=== PATIENT | male | born 1985 | race Caucasian/White ===

== ENCOUNTER 2023-09-17 11:15 | Inpatient (IN) ==
[2023-09-17] MEDS: ACETAMINOPHEN 325 MG TAB PO STA ×2 (11:40→18:16)
--- NOTE | 2023-09-17 12:03 | Emergency Department Note ---
History of Present Illness General Chief complaint: Illness Stated complaint: COUGH, SOB, FAST HR, FEVER Time Seen by Provider: 09/17/23 12:03 History of Present Illness Maximum Pain Intensity: 4 NAME: MATT ZARATE AGE: 37 SEX: M : 1985 ARRIVES VIA: Walk-In INFORMANT: Patient ED PROVIDER(S): QUYNH Erickson, Cirilo Banks MD The patient is a pleasant 37-year-old male who arrives to the emergency department for evaluation of fever, cough, body aches over the last week. He reports on Wednesday he left work with a high fever, went home and took Tylenol and went to bed. He reports he woke up the next day with cough, then that afternoon the fever became worse. He states today he was unable to get up out of bed due to weakness. He reports coughing up yellow/green secretions, he denies sore throat, abdominal pain, nausea or vomiting. He denies chest pain, and reports shortness of breath. Home Medications Medication Instructions Recorded Confirmed Type No Known Home Medications 09/17/23 09/17/23 History Allergies Allergy/AdvReac Type Severity Reaction Status Date / Time Pertussis Vaccines Allergy Intermediate Rash Verified 09/17/23 15:09 Past Med/Surg History Problem List (Updated 09/17/23 @ 16:39 by QUYNH Hawkins) RLL pneumonia (Acute) Sepsis Social History Smoking Status: Current every day smoker Tobacco Type: Cigarettes Feels Safe at Home: Yes Physical Exam Vital Signs Vital Signs - 24 hr 09/17/23 11:16 09/17/23 13:23 09/17/23 13:30 Temperature 37.7 C H Temperature Source Oral Pulse Rate 108 H 93 H Pulse Rate [Apical] Pulse Rate [Exercises] Pulse Rate [Left Finger] 90 Pulse Rate [Recovery] Pulse Rate [Resting] Pulse Rate from SpO2 Sensor Pulse Rhythm [Apical] Respiratory Rate 18 33 H Respiratory Rate [Exercises] Respiratory Rate [Recovery] Respiratory Rate [Resting] Respiratory Effort / Characteristics Non-Labored Spontaneous Respiratory Depth Normal Respiratory Pattern Regular Blood Pressure 154/88 H Blood Pressure [Left Arm] 132/80 Blood Pressure Mean 110 Blood Pressure Mean [Left Arm] 97 Blood Pressure Position [Left Arm] Lying Pulse Oximetry 92 92 Pulse Oximetry [Exercises] Pulse Oximetry [Recovery] Pulse Oximetry [Resting] Oxygen Delivery Method Room Air Room Air Sepsis Recent Fever Within 48 Hours Yes Sepsis New/Unexplained Change in Mental Status N/A Sepsis Action Taken by Nursing No Action Required 09/17/23 13:33 09/17/23 13:39 09/17/23 13:43 Temperature Temperature Source Pulse Rate 96 H 97 H Pulse Rate [Apical] Pulse Rate [Exercises] Pulse Rate [Left Finger] Pulse Rate [Recovery] Pulse Rate [Resting] Pulse Rate from SpO2 Sensor 99 H 100 H Pulse Rhythm [Apical] Respiratory Rate 28 H 33 H Respiratory Rate [Exercises] Respiratory Rate [Recovery] Respiratory Rate [Resting] Respiratory Effort / Characteristics Respiratory Depth Respiratory Pattern Blood Pressure 123/70 Blood Pressure [Left Arm] Blood Pressure Mean 79 Blood Pressure Mean [Left Arm] Blood Pressure Position [Left Arm] Pulse Oximetry 92 94 Pulse Oximetry [Exercises] Pulse Oximetry [Recovery] Pulse Oximetry [Resting] Oxygen Delivery Method Sepsis Recent Fever Within 48 Hours Sepsis New/Unexplained Change in Mental Status Sepsis Action Taken by Nursing 09/17/23 13:57 09/17/23 13:57 09/17/23 14:03 Temperature 37.2 C Temperature Source Oral Pulse Rate 86 Pulse Rate [Apical] 84 Pulse Rate [Exercises] 110 H Pulse Rate [Left Finger] Pulse Rate [Recovery] 112 H Pulse Rate [Resting] 84 Pulse Rate from SpO2 Sensor 87 Pulse Rhythm [Apical] Regular Respiratory Rate 28 H 35 H Respiratory Rate [Exercises] 30 H Respiratory Rate [Recovery] 34 H Respiratory Rate [Resting] 28 H Respiratory Effort / Characteristics Non-Labored Spontaneous Respiratory Depth Normal Respiratory Pattern Regular Blood Pressure Blood Pressure [Left Arm] 123/70 Blood Pressure Mean Blood Pressure Mean [Left Arm] 87 Blood Pressure Position [Left Arm] Pulse Oximetry 92 91 Pulse Oximetry [Exercises] 91 Pulse Oximetry [Recovery] 89 L Pulse Oximetry [Resting] 92 Oxygen Delivery Method Room Air Room Air Sepsis Recent Fever Within 48 Hours Sepsis New/Unexplained Change in Mental Status Sepsis Action Taken by Nursing 09/17/23 14:36 09/17/23 15:18 09/17/23 15:30 Temperature Temperature Source Pulse Rate 86 88 Pulse Rate [Apical] Pulse Rate [Exercises] Pulse Rate [Left Finger] Pulse Rate [Recovery] Pulse Rate [Resting] Pulse Rate from SpO2 Sensor 87 88 Pulse Rhythm [Apical] Respiratory Rate 35 H 36 H Respiratory Rate [Exercises] Respiratory Rate [Recovery] Respiratory Rate [Resting] Respiratory Effort / Characteristics Respiratory Depth Respiratory Pattern Blood Pressure 126/80 Blood Pressure [Left Arm] Blood Pressure Mean 96 Blood Pressure Mean [Left Arm] Blood Pressure Position [Left Arm] Pulse Oximetry 92 92 Pulse Oximetry [Exercises] Pulse Oximetry [Recovery] Pulse Oximetry [Resting] Oxygen Delivery Method Sepsis Recent Fever Within 48 Hours Sepsis New/Unexplained Change in Mental Status Sepsis Action Taken by Nursing 09/17/23 15:30 Temperature Temperature Source Pulse Rate 90 Pulse Rate [Apical] Pulse Rate [Exercises] Pulse Rate [Left Finger] Pulse Rate [Recovery] Pulse Rate [Resting] Pulse Rate from SpO2 Sensor 89 Pulse Rhythm [Apical] Respiratory Rate 34 H Respiratory Rate [Exercises] Respiratory Rate [Recovery] Respiratory Rate [Resting] Respiratory Effort / Characteristics Respiratory Depth Respiratory Pattern Blood Pressure Blood Pressure [Left Arm] Blood Pressure Mean Blood Pressure Mean [Left Arm] Blood Pressure Position [Left Arm] Pulse Oximetry 92 Pulse Oximetry [Exercises] Pulse Oximetry [Recovery] Pulse Oximetry [Resting] Oxygen Delivery Method Room Air Sepsis Recent Fever Within 48 Hours Sepsis New/Unexplained Change in Mental Status Sepsis Action Taken by Nursing VITALS: Vitals are noted on the nurse's note and reviewed by myself. Febrile, tachycardia, tachypnea, O2 sat 98 to 92% on room air. GENERAL: 37-year-old male, in no acute distress, nondiaphoretic, well-developed well-nourished. SKIN: The skin was without rashes, erythema, edema, or bruising. HEAD: Normocephalic atraumatic. HEART: Regular rate and rhythm without murmurs gallops or rubs. LUNGS: Diminished lung sounds throughout. ABDOMEN: Positive bowel sounds x 4. Soft, nontender, without masses or organomegaly. Fortune sign negative. No guarding or rebound tenderness. MUSCULOSKELETAL: No muscle atrophy, erythema, or edema noted. Normal gait. Strength 5/5 throughout. NEURO: Patient was alert and oriented to person place and time. No focal neurological deficits. Course Administered Medications Ceftriaxone Sodium (Rocephin) 2,000 mg in 50 mls @ 100 mls/hr IV Q24H ABRAHAM Stop: 09/19/23 14:14 Last Infusion: 09/17/23 15:46 Dose: Infused Documented By: Admin: 09/17/23 14:48 Dose: 100 mls/hr Documented By: AVE Discontinued Medications Acetaminophen (Acetaminophen 325 Mg Tab) 325 mg PO NOW STA Stop: 09/17/23 11:27 Last Admin: 09/17/23 11:40 Dose: 325 mg Documented By: MANSI Albuterol (Albuterol 0.5% Neb Soln 2.5 Mg/0.5 Ml Vial) 2.5 mg NEB NOW STA; Protocol Stop: 09/17/23 14:38 Last Admin: 09/17/23 15:46 Dose: 2.5 mg Documented By: ANDREW Sodium Chloride (Nss) 1,000 mls @ 999 mls/hr IV .Q1H1M ONE Stop: 09/17/23 13:32 Last Infusion: 09/17/23 15:46 Dose: Infused Documented By: Admin: 09/17/23 13:29 Dose: 999 mls/hr Documented By: AVE Azithromycin 500 mg/ Dextrose 255 mls @ 127.5 mls/hr IV NOW STA Stop: 09/17/23 16:11 Last Admin: 09/17/23 15:46 Dose: 127.5 mls/hr Documented By: ANDREW Ibuprofen (Ibuprofen 600 Mg Tab) 600 mg PO NOW STA Stop: 09/17/23 13:43 Last Admin: 09/17/23 13:56 Dose: 600 mg Documented By: AVE Medical Decision Making Differential Diagnosis Viral syndrome, strep pharyngitis, tonsillitis, mononucleosis, retropharyngeal abscess, peritonsillar abscess, otitis media, sinusitis, bronchitis, pneumonia, as well as other pathologies. Medical Records Attestation: I reviewed the patient's medical records. Home Medications Current Medication List: was personally reviewed by me Laboratory Data Attestation: I reviewed the patient's lab results. Leukocytosis 16.04 stable hemoglobin and hematocrit no electrolyte abnormalities, group A strep negative lactate 1.0 09/17/23 11:43 09/17/23 11:43 Lab Results 09/17/23 09/17/23 09/17/23 Range/Units 11:43 11:53 13:14 WBC 16.04 H (4.8-10.8) K/ul RBC 5.60 (4.70-6.10) M/uL Hgb 16.0 (14.0-18.0) g/dl Hct 47.0 (42.0-52.0) % MCV 83.9 (80.0-100.0) fL MCH 28.6 (25.0-34.0) pg MCHC 34.0 (32.0-36.0) g/dL RDW Std Deviation 36.4 (36.4-46.3) fL RDW Coeff of Kike 12.0 (11.5-14.5) % Plt Count 258 (130-400) K/uL MPV 9.4 (9.4-12.4) fL Immature Gran % (Auto) 0.5 % Neut % (Auto) 77.8 % Lymph % (Auto) 13.4 % [place] % (Auto) 7.0 % Eos % (Auto) 1.0 % Baso % (Auto) 0.3 % Neut # (Auto) 12.47 H (1.40-6.50) K/uL Lymph # (Auto) 2.15 (1.20-3.40) K/uL [place] # (Auto) 1.13 H (0.11-0.59) K/uL Eos # (Auto) 0.16 (0.00-0.50) K/uL Baso # (Auto) 0.05 (0.00-0.20) K/uL Immature Gran # (Auto) 0.08 (0.01-0.20) K/uL Sodium 138 (136-145) mmol/L Potassium 4.2 (3.5-5.1) mmol/L Chloride 103 (98-107) mmol/L Carbon Dioxide 26 (21-32) mmol/L Anion Gap 9 (3-11) BUN 11 (6-23) mg/dl Creatinine 0.98 (0.6-1.4) mg/dl Est Cr Clr Drug Dosing 133.0 ml/min Est GFR ( Amer) 114.5 ml/min Est GFR (Non-Af Amer) 98.8 ml/min BUN/Creatinine Ratio 11.2 (10-20) Glucose 96 (70-99(Fasting)) mg/dl Lactate 1.0 (0.4-2.0) mmol/L Calcium 9.6 (8.6-10.3) mg/dl Total Bilirubin 0.7 (0.2-1.0) mg/dl AST 25 (13-39) U/L ALT 29 (7-52) U/L Alkaline Phosphatase 112 H (34-104) U/L Total Protein 7.8 (6.0-8.3) gm/dl Albumin 4.4 (3.4-5.0) gm/dl Globulin 3.4 (2.5-4.0) gm/dl Albumin/Globulin Ratio 1.3 (0.9-2) Acetaminophen < 3 L (10-30) ug/ml Monoscreen Negative (Negative) Group A Strep (PCR) NOT DETECTED (NotDetected) Imaging Data Attestation: I personally reviewed and interpreted this imaging study as follows: My Impression: Initial x-ray interpretation per myself shows patchy airspace opacities with right lower lung consolidation. Will await formal radiology report. Radiologist's Impression: Chest X-Ray 09/17/23 11:24 XR chest 1V not portable CLINICAL HISTORY: difficulty breathing TECHNIQUE: Single frontal radiograph of the chest was obtained. Comparison: None available at the time of this dictation. FINDINGS: No lines and tubes are seen. The cardiomediastinal silhouette is normal. Right lower lung airspace opacity is seen. No evidence of pleural effusion or pneumothorax. IMPRESSION: Right lower lung airspace opacity likely represent atelectasis with or without superimposed aspiration/pneumonia. ACT 112: Negative or not required by law. Electronically signed by: Donte Siddiqui M.D. 09/17/2023 12:59 PM MDM Narrative The patient is a pleasant 37-year-old male who arrives to the emergency department for the above-stated complaint. Initial workup was performed in triage including a saline lock, CBC, CMP, monotest, blood cultures and lactate. Upon examination the patient reports body aches, fever, chills with significant cough. CBC shows a leukocytosis of 16.04, lactate 1.0, CMP unremarkable, monotest negative. Chest x-ray per my initial interpretation shows patchy opacities of the right lower lobe consolidation. Group A strep was added after the patient informed me his family was recently positive for strep, his test was negative. The patient performed an ambulatory pulse ox trial with a result of 89% upon ambulation. I spoke with the patient regarding the workup, he was agreeable for hospital admission. Case management was notified, and facilitated contact with the [facility] hospitalist group. Dr. Estrada from the [facility] hospitalist group agreed to accept the patient. He was started on IV azithromycin, as well as Rocephin. Please refer to Dr. Estrada's documentation for further patient care. Continuous groundwater monitoring technician: Order was placed for continuous groundwater monitoring technician. Patient was placed on the groundwater monitoring technician. Patient was noted to be in sinus tachycardia at an initial rate of 96 bpm. Impression & Plan RLL pneumonia Discharge Plan Visit Data Chief Complaint: Illness Stated Complaint: COUGH, SOB, FAST HR, FEVER ED Provider: Cirilo Banks ED Midlevel Provider: Nadege Sweeney Discharge Problem: RLL pneumonia Forms Stand Alone Forms: [employer] Prescriptions Prescriptions: No Action No Known Home Medications Referrals Referrals: PCP,NO [Primary Care Provider] - Discharge Problem: RLL pneumonia Qualifiers: Pneumonia type: due to unspecified organism Qualified Code(s): J18.9 - Pneumonia, unspecified organism
[2023-09-17 12:12] LABS: Basophils # (auto) 0.05 K/uL (0.00-0.20); Basophils % (auto) 0.3 %; Eosinophils # (auto) 0.16 K/uL (0.00-0.50); Immature Granulocytes # (auto) 0.08 K/uL (0.01-0.20); Immature Granulocytes % (auto) 0.5 %; Lymphocytes # (auto) 2.15 K/uL (1.20-3.40); Lymphocytes % (auto) 13.4 %; Mean Corpuscular Hemoglobin 28.6 pg (25.0-34.0); Mean Corpuscular Volume 83.9 fL (80.0-100.0); Mean Platelet Volume 9.4 fL (9.4-12.4); Monocytes # (auto) 1.13 K/uL (0.11-0.59); Neutrophils # (auto) 12.47 K/uL (1.40-6.50); Neutrophils % (auto) 77.8 %; Platelet Count 258 K/uL (130-400); RDW Standard Deviation 36.4 fL (36.4-46.3); White Blood Count 16.04 K/ul (4.8-10.8)
[2023-09-17 12:31] LABS: Albumin Globulin Ratio 1.3 (0.9-2); Albumin Level 4.4 gm/dl (3.4-5.0); BUN Creatinine Ratio 11.2 (10-20); Bilirubin,Total 0.7 mg/dl (0.2-1.0); Calcium 9.6 mg/dl (8.6-10.3); Est GFR (African American) 114.5 ml/min; Est GFR (Non-African American) 98.8 ml/min; Globulin 3.4 gm/dl (2.5-4.0); Potassium 4.2 mmol/L (3.5-5.1); Total Protein 7.8 gm/dl (6.0-8.3)
--- NOTE | 2023-09-17 13:00 | XRay Report ---
XR chest 1V not portable CLINICAL HISTORY: difficulty breathing TECHNIQUE: Single frontal radiograph of the chest was obtained. Comparison: None available at the time of this dictation. FINDINGS: No lines and tubes are seen. The cardiomediastinal silhouette is normal. Right lower lung airspace op acity is seen. No evidence of pleural effusion or pneumothorax. IMPRESSION: Right lower lung airspace opacity likely represent atelectasis with or without superimposed aspiratio n/pneumonia. ACT 112: Negative or not required by law. Electronically signed by: Donte Siddiqui M.D. 09/17/2023 12:59 PM
[2023-09-17] MEDS: SODIUM CHLORIDE 0.9% 1,000 ML IV ONE (13:29)
[2023-09-17] MEDS: IBUPROFEN 600 MG TAB PO STA (13:56)
[2023-09-17] MEDS: cefTRIAXone SODIUM 2,000 MG/50 ML BAG IV SCH (14:48)
--- NOTE | 2023-09-17 15:09 | History & Physical Report ---
Date of Service September 17, 2023 Assessment & Plan (1) Sepsis: (2) RLL pneumonia: Plan: Ran Myrick is a 37y/o M with no significant PMHx who presented to the ED for evaluation of cough w/ associated SOB and was found to have RLL pneumonia. Initial BP on arrival to ED 154/88, now 123/70 on admission. HR was elevated at 112bpm around 1:57 PM, currently HR 84bpm. RR remaining elevated around the 30s, most recent RR 34. Temp on arrival to ED was slightly elevated at 37.7 C. Temp NOT currently elevated at 37.2 C. Currently 92% O2 Sat on RA. Labs reveal WBC 16.04, no acute electrolyte abnormalities. Alk Phos slightly elevated at 112, otherwise LFTs w/in normal range. Group A strep and monoscreen both negative. Lactate 1.0 on admission. Creatinine 0.98 and GFR 98.8, no evidence of acute renal impairment. Chest x-ray revealed right lower lung airspace opacity likely representing atelectasis with or without superimposed aspiration/pneumonia. Will treat as likely pneumonia. [place] [facility] [place]epsis/Septic Shock Criteria, patient does meet SEPSIS CRITERIA: current RR 34, WBC 16.04 and there is a suspected/present source of infection. Patient administered the following in the ED: 1L NSS, 600mg PO ibuprofen, 2g IV ceftriaxone, 500mg IV azithromycin, 325mg PO Tylenol and an albuterol nebulizer. As mentioned in my physical examination, he was appearing very sweaty/slightly uncomfortable. No fever, but did order him another dose of PO Tylenol to be given in the ED. Ordered routine EKG to establish baseline findings, however NOT currently reporting any chest pain. -Continue aggressive IVF hydration w/ NSS, broad-spectrum IV ABX coverage [cefepime + azithromycin]. -Pulmonary toilet w/ scheduled nebs, flutter valve and incentive spirometry. -RVP, sputum culture, urine legionella ordered. Continuous cardiac monitoring. -Blood culture pending, follow results to narrow ABX coverage. -Activity Ad Grecia/as Tolerated, fall precautions ordered. -Smoking cessation counseling ordered. -Repeat BMP, CBC no diff in AM. DVT Prophylaxis: Lovenox Code Status: Full Code PCP: NO PCP Dispo: Admit to Med/Surg w/ Telemetry Patient seen in collaboration with Dr. Morgan. Please see addendum. I spent a total of 75 minutes coordinating, documenting, and providing care for this patient excluding time spent in the performance of separately billed services. This included personally reviewing all current laboratories and imaging studies, medical reconciliation, outpatient chart review and discussion with specialists. This chart was completed in part utilizing Speech Voice Recognition Software. Grammatical errors, random word insertions, pronoun errors, and incomplete sentences are an occasional consequence of this system due to software limitations, ambient noise, and hardware issues. Any formal questions or concerns about the content, text, or information contained within the body of this dictation should be directly addressed to the provider for clarification. History of Present Illness Chief Complaint: Cough, SOB x 5 days Primary Care Provider: NO PCP Ran Myrick is a 37y/o M with no significant PMHx who presented to the ED for evaluation of cough w/ associated SOB x 5 days. History obtained from patient, and associated ED records. Patient seen at bedside and is accompanied in the room by his significant other, who provides additional history. Patient reports that he has been experiencing some ongoing SOB and cough since Wednesday. He reports yellow/green sputum production and ongoing chills/body aches. His significant other notes that he has had ongoing, intermittent fevers. They could not remember what his last known temperature was, but it is understood that his temperature did reach ~102F a few days ago. His kids have been battling strep throat over the past week, but he denies any other recent sick contacts. He denies any N/V, abdominal pain or urinary/bowel habit changes. He has become increasingly fatigued, had some difficulty even getting out of bed this morning d/t weakness. He has been appropriately hydrating at home. He reports consuming a lot of cereal at home, which is not his normal diet. He endorses a slight decrease in appetite, but denies any issues with swallowing. He denies any chest pain. He did report becoming a little lightheaded/dizzy upon standing this morning when he got out of bed, but denies any recent falls. He is currently not lightheaded/dizzy. He h as been taking Tylenol and OTC cold medications at home w/ no relief of the cough/SOB. He denies any current sinus congestion, but does endorse feeling congested in his chest. He is having some pleuritic pain d/t coughing so much, and has been dealing with episodes of sweating. He is currently not taking any prescription medications. He denies any sore throat. Initial BP on arrival to ED 154/88, now 123/70 on admission. HR was elevated at 112bpm around 1:57 PM, currently HR 84bpm. RR remaining elevated around the 30s, most recent RR 34. Temp NOT currently elevated at 37.2 C. Currently 92% O2 Sat on RA. Labs reveal WBC 16.04, no acute electrolyte abnormalities. Alk Phos slightly elevated at 112, otherwise LFTs w/in normal range. Group A strep and monoscreen both negative. Lactate 1.0 on admission. Creatinine 0.98 and GFR 98.8, no evidence of acute renal impairment. Chest x-ray revealed right lower lung airspace opacity likely representing atelectasis with or without superimposed aspiration/pneumonia. Will treat as likely pneumonia. Per [facility] SIRS/Sepsis/Septic Shock Criteria, patient does meet SEPSIS CRITERIA: current RR 34, WBC 16.04 and there is a suspected/present source of infection. Patient administered the following in the ED: 1L NSS, 600mg PO ibuprofen, 2g IV ceftriaxone, 500mg IV azithromycin, 325mg PO Tylenol and an albuterol nebulizer. Allergies Allergy/AdvReac Type Severity Reaction Status Date / Time Pertussis Vaccines Allergy Intermediate Rash Verified 09/17/23 17:11 Home Medications Medication Instructions Recorded Confirmed Type No Known Home Medications 09/17/23 09/17/23 History Past Med/Surg History Problem List RLL pneumonia (Acute) Sepsis Medical History No pertinent past medical history Social History Smoking Status: Current every day smoker Tobacco Type: Cigarettes Hx Alcohol Use: No Hx Substance Use: No Preferred Language: Portuguese Communication Ability: Effective Closing Specialist Required: No Beliefs That Will Affect Care: None Current Living Situation: Family and Significant Other Feels Safe at Home: Yes Safety Concerns: Feels Safe At This Time Assistive Devices: None Review of Systems Review of Systems: At least ten systems reviewed and negative, except as noted in the HPI. Physical Exam Physical Exam: General Appearance: No acute distress, but appears slightly uncomfortable and sweaty. Conversing appropriately w/ no issues. Head: Normocephalic, atraumatic. Eyes: Normal inspection, PERRL, conjunctivae normal, anicteric sclerae. ENT: External ear and nose normal, oropharynx normal. Neck: Normal visual inspection, trachea midline, no thyromegaly. Respiratory: Lung sounds diminished throughout, no overt wheezing noted. No accessory muscle use. Cardiovascular: Tachycardic, regular rhythm, no murmur, normal peripheral pulses, no BLE edema. Vessels: No JVD. Chest: Normal inspection of chest. Abdomen/GI: Normal bowel sounds, soft, nontender, no hepatosplenomegaly. Extremities/Musculoskeletal: No cyanosis or clubbing, extremities motor strength 5/5. Neurologic: PERRL, EOMI, accommodation nl, no face palsy, no dysarthria, CN's II-XI grossly intact bilaterally and moves all extremities. Psychiatric: A+Ox3, euthymic affect. Skin: No rashes, normal color, warm/dry. Results & Data Results & Data Vital Signs (Past 12 Hours) Vital Signs Temp Pulse Pulse Pulse Pulse Pulse Pulse 09/17/23 13:57 37.2 C 84 09/17/23 13:57 110 H 112 H 84 09/17/23 13:30 90 09/17/23 13:23 93 H 09/17/23 11:16 37.7 C H 108 H Resp Resp Resp Resp BP BP Pulse Ox 09/17/23 13:57 28 H 123/70 92 09/17/23 13:57 30 H 34 H 28 H 09/17/23 13:30 33 H 132/80 92 09/17/23 13:23 09/17/23 11:16 18 154/88 H 92 Pulse Ox Pulse Ox Pulse Ox O2 Del Method 09/17/23 13:57 Room Air 09/17/23 13:57 91 89 L 92 Room Air 09/17/23 13:30 Room Air 09/17/23 13:23 09/17/23 11:16 Room Air Laboratory Results Short CBC 09/17/23 Range/Units 11:43 WBC 16.04 H (4.8-10.8) K/ul Hgb 16.0 (14.0-18.0) g/dl Hct 47.0 (42.0-52.0) % Plt Count 258 (130-400) K/uL BMP 09/17/23 11:43 Sodium 138 Potassium 4.2 Chloride 103 Carbon Dioxide 26 BUN 11 Creatinine 0.98 Glucose 96 Calcium 9.6 Liver Function 09/17/23 Range/Units 11:43 Total Bilirubin 0.7 (0.2-1.0) mg/dl AST 25 (13-39) U/L ALT 29 (7-52) U/L Alkaline Phosphatase 112 H (34-104) U/L Albumin 4.4 (3.4-5.0) gm/dl Diagnostic Findings Chest X-Ray 09/17/23 11:24 XR chest 1V not portable CLINICAL HISTORY: difficulty breathing TECHNIQUE: Single frontal radiograph of the chest was obtained. Comparison: None available at the time of this dictation. FINDINGS: No lines and tubes are seen. The cardiomediastinal silhouette is normal. Right lower lung airspace opacity is seen. No evidence of pleural effusion or pneumothorax. IMPRESSION: Right lower lung airspace opacity likely represent atelectasis with or without superimposed aspiration/pneumonia. ACT 112: Negative or not required by law. Electronically signed by: Donte Siddiqui M.D. 09/17/2023 12:59 PM Medications Administered Ceftriaxone Sodium (Rocephin) 2,000 mg in 50 mls @ 100 mls/hr IV Q24H ABRAHAM Stop: 09/19/23 14:14 Last Admin: 09/17/23 14:48 Dose: 100 mls/hr Discontinued Medications Acetaminophen (Acetaminophen 325 Mg Tab) 325 mg PO NOW STA Stop: 09/17/23 11:27 Last Admin: 09/17/23 11:40 Dose: 325 mg Documented By: MANSI Sodium Chloride (Nss) 1,000 mls @ 999 mls/hr IV .Q1H1M ONE Stop: 09/17/23 13:32 Last Admin: 09/17/23 13:29 Dose: 999 mls/hr Documented By: AVE Ibuprofen (Ibuprofen 600 Mg Tab) 600 mg PO NOW STA Stop: 09/17/23 13:43 Last Admin: 09/17/23 13:56 Dose: 600 mg Documented By: AVE Code Status & VTE Plan Code Status FULL CODE VTE Prophylaxis Plan VTE Prophylaxis will be ordered: Yes Supervising Physician Co-Signing Physician Notes delayed entry date of service noted above Attending Addendum: care coordinated extensively with AYAH Qi Mark please refer to her notes for full details, I agree with her notes patient seen and examined, records reviewed by myself as well Diagnoses and plan of care formulated with AYAH Qi Mark in detail, please refer to her notes Jacob Morgan MD (1) Sepsis Sepsis acute organ dysfunction status: without acute organ dysfunction Sepsis type: sepsis due to unspecified organism Qualified Code(s): A41.9 - Sepsis, unspecified organism (2) RLL pneumonia Pneumonia type: due to unspecified organism Qualified Code(s): J18.9 - Pneumo cheng, unspecified organism
[2023-09-17] MEDS: ALBUTEROL 0.5% NEB SOLN 2.5 MG/0.5 ML VIAL NEB STA (15:46)
[2023-09-17] MEDS: AZITHROMYCIN 500 MG in DEXTROSE 5% 250 ML IV STA (15:46)
[2023-09-17 16:53] LABS: Adenovirus PCR Not Detected (NotDetected); Bordetella parapertussis PCR Not Detected (NotDetected); Bordetella pertussis PCR Not Detected (NotDetected); Chlamydia pneumoniae PCR Not Detected (NotDetected); Coronavirus 229E PCR Not Detected (NotDetected); Coronavirus CoV-2 (COVID19)PCR Not Detected (NotDetected); Coronavirus HKU1 PCR Not Detected (NotDetected); Coronavirus NL63 PCR Not Detected (NotDetected); Coronavirus OC43PCR Not Detected (NotDetected); Human Metapneumovirus PCR Not Detected (NotDetected); Influenza A PCR Not Detected (NotDetected); Influenza B PCR Not Detected (NotDetected); Mycoplasma pneumoniae PCR DETECTED (NotDetected); Parainfluenza Virus 1 PCR Not Detected (NotDetected); Parainfluenza Virus 2 PCR Not Detected (NotDetected); Parainfluenza Virus 3 PCR Not Detected (NotDetected); Parainfluenza Virus 4 PCR Not Detected (NotDetected); Respiratory Syncytial VirusPCR Not Detected (NotDetected); Rhinovirus/Enterovirus PCR Not Detected (NotDetected)
[2023-09-17] MEDS ORDERED: ALUMINUM/MAGNESIUM SUSP 30 ML UDC PO PRN (18:46)
[2023-09-17] MEDS ORDERED: ONDANSETRON INJ 2 MG/ML 2 ML VIAL IV PRN (18:46)
[2023-09-17] MEDS ORDERED: POLYETHYLENE (MIRALAX) 17 GM PACK PO PRN (18:46)
[2023-09-17] MEDS ORDERED: MAGNESIUM HYDROXIDE SUSP 30 ML UDC PO PRN (18:46)
[2023-09-17] MEDS: ENOXAPARIN INJ 40 MG/0.4 ML SYR SQ SCH (20:05)
[2023-09-17] MEDS: CEFEPIME 2,000 MG in SYRINGE 0 ML IV SCH (20:05)
[2023-09-17] MEDS: ALBUTEROL 0.5% NEB SOLN 2.5 MG/0.5 ML VIAL NEB SCH (20:05)
[2023-09-17] MEDS: SODIUM CHLORIDE 0.9% 1,000 ML IV SCH (20:06)
[2023-09-17] MEDS: ACETAMINOPHEN 325 MG TAB PO PRN (23:21)
--- NOTE | 2023-09-18 00:01 | Communication Note ---
Date of Service: September 18, 2023 Notified by RN of increased SOB and hypoxemia. O2 sats 80s after coming out of bathroom. AP Acute hypoxemic respiratory failure secondary to community-acquired pneumonia Supplemental O2 Baseline ABG Solu-Medrol 1 dose now, nebs stat Continue antibiotic Rx
[2023-09-18] MEDS ORDERED: methylPREDNISolone 125 MG/2 ML VIAL IV STA (00:04)
[2023-09-18] MEDS: LEVALBUTEROL 1.25 MG/3 ML NEB NEB STA (00:10)
[2023-09-18] MEDS: IPRATROPIUM BROMIDE NEB SOLN 0.02% 0.5MG/2.5ML VIAL INH STA (00:10)
[2023-09-18 00:26] LABS: Magnesium 2.1 mg/dl (1.7-2.4)
[2023-09-18] MEDS: AMPICILLIN/SULBACTAM SOD 3,000 MG in SODIUM CHLOR 0.9% MINI-B 100 ML IV SCH (00:26)
[2023-09-18] MEDS: methylPREDNISolone 40 MG in SYRINGE 0 ML IV ONE (00:26)
[2023-09-18 00:45] LABS: Base Excess ABG 0.8 mEq/L (-9-1.8); HCO3 ABG 24 mmol/L (19-24); PCO2 ABG 34 mmHg (35-46); PO2 ABG 69 mmHg (80-95); pH ABG 7.46 (7.35-7.45)
[2023-09-18 00:50] LABS: Allen Test Pos (Pos)
[2023-09-18 06:45] LABS: Hematocrit (blood only) 46.6 % (42.0-52.0); Hemoglobin 15.7 g/dl (14.0-18.0); Mean Corpuscular Hemoglobin 28.5 pg (25.0-34.0); Mean Corpuscular Hgb Conc 33.7 g/dL (32.0-36.0); Mean Corpuscular Volume 84.7 fL (80.0-100.0); Mean Platelet Volume 9.4 fL (9.4-12.4); Platelet Count 279 K/uL (130-400); RDW Coefficient of Variation 12.2 % (11.5-14.5); RDW Standard Deviation 37.4 fL (36.4-46.3); White Blood Count 12.64 K/ul (4.8-10.8)
[2023-09-18 07:56] LABS: BUN Creatinine Ratio 12.8 (10-20); Calcium 9.3 mg/dl (8.6-10.3); Creatinine Clr Calc Pharmacy 151.6 ml/min; Est GFR (African American) 129.3 ml/min; Est GFR (Non-African American) 111.6 ml/min; Potassium 3.9 mmol/L (3.5-5.1)
--- NOTE | 2023-09-18 08:12 | XRay Report ---
XR chest 1V portable HISTORY: Shortness of breath. COMPARISON: Chest 09/17/2023. FINDINGS: Interval progression of the right lower lobe airspace opacity consistent with a pneumonia. No pneumothorax. No pleural effusions. The cardiac silhouette is borderline enlarged. This may be acc entuated by the low lung volumes. There is mild diffuse interstitial prominence. IMPRESSION: Interval progression of the right lower lobe airspace opacity consistent with a pneumonia. 1-2 month chest x-ray follow-up recommended to ensure resolution. ACT 112: Negative or not required by law. Electronically signed by: Janusz Chance M.D. 09/18/2023 8:11 AM
[2023-09-18] MEDS ORDERED: guaiFENesin/DEXTROM SYRUP 200MG/20MG 10ML UDC PO PRN (09:41)
--- NOTE | 2023-09-18 15:48 | Hospitalist Progress Note ---
Date of Service September 18, 2023 Assessment & Plan (1) Sepsis: (2) RLL pneumonia: Plan: Ran Myirck is a 37y/o M with no significant PMHx who presented to the ED for evaluation of cough w/ associated SOB and was found to have RLL pneumonia. Sepsis Right lower lobe pneumonia Acute respiratory failure with hypoxia--POA --CXR:Right lower lung airspace opacity likely represent atelectasis with or without superimposed aspiration/pneumonia. --Nasal MRSA negative -- BioFire positive for mycoplasma pneumonia --Group A strep, mono screen negative --Urine Legionella antigen pending --Blood cultures negative to date --Sputum culture pending --Empirically on azithromycin, cefepime --Aggressive pulmonary hygiene -- Nebs as needed --Wean off of supplemental oxygen as able -- Check procalcitonin --Received IV fluids -Antitussives as needed Obesity BMI 4 Hyperglycemia Check A1c DVT Px: Lovenox SQ Code Status: Full Code Admission and Anticipated Discharge Date Admission Date: September 17, 2023 Subjective Patient is seen and examined at bedside States feeling a lot better today Less dyspnea Still has some cough with expectoration Denies any chest pain, nausea, vomiting abdominal pain No other complaints Saturating well on 2 L supplemental oxygen Review of Systems Review of Systems: All systems reviewed & are unremarkable except as noted in Subjective Physical Exam Physical Exam: Physical Exam: Vitals signs as noted above General Appearance:Obese, no apparent distress Head: normocephalic, Atraumatic Eyes: normal inspection, EOMI Neck: supple, Trachea midline Respiratory/Chest: Decreased breath sounds, scattered wheezes, No accessory muscle use Cardiovascular: S1, S2, No murmur Abdomen/GI:Soft, Non tender, Bowel sounds present Extremities/Musculoskeletal:normal inspection, no edema Neurologic/Psych:AAOX3, grossly no focal neurological deficits Skin: normal color, warm Results & Data Results & Data Vital Signs (Past 12 Hours) Vital Signs Temp Pulse Pulse Resp BP BP Pulse Ox 09/18/23 15:05 79 09/18/23 14:45 83 16 92 09/18/23 11:14 36.3 C L 75 18 139/79 94 09/18/23 10:43 90 18 90 09/18/23 08:00 09/18/23 07:44 36.6 C 79 18 123/65 94 09/18/23 07:32 74 06/01/24 07:00 80 18 92 09/18/23 05:16 36.7 C 80 24 129/78 93 O2 Del Method O2 Flow Rate 09/18/23 15:05 09/18/23 14:45 Nasal Cannula 2 09/18/23 11:14 Nasal Cannula 2 09/18/23 10:43 Nasal Cannula 2 09/18/23 08:00 Nasal Cannula 2 09/18/23 07:44 Nasal Cannula 2 09/18/23 07:32 09/18/23 07:00 Nasal Cannula 2 09/18/23 05:16 Nasal Cannula 2 Laboratory Results Short CBC 09/18/23 Range/Units 06:10 WBC 12.64 H (4.8-10.8) K/ul Hgb 15.7 (14.0-18.0) g/dl Hct 46.6 (42.0-52.0) % Plt Count 279 (130-400) K/uL BMP 09/18/23 06:10 Sodium 139 Potassium 3.9 Chloride 106 Carbon Dioxide 22 BUN 11 Creatinine 0.86 Glucose 157 H Calcium 9.3 (1) Sepsis Sepsis type: sepsis due to unspecified organism Sepsis acute organ dysfunction status: without acute organ dysfunction Qualified Code(s): A41.9 - Sepsis, unspecified organism (2) RLL pneumonia Pneumonia type: due to unspecified organism Qualified Code(s): J18.9 - Pneumonia, unspecified organism
[2023-09-18] MEDS: AZITHROMYCIN 250 MG in DEXTROSE 5% 250 ML IV SCH (17:46)
[2023-09-19 06:39] LABS: Hematocrit (blood only) 41.3 % (42.0-52.0); Hemoglobin 14.1 g/dl (14.0-18.0); Mean Corpuscular Hemoglobin 28.7 pg (25.0-34.0); Mean Corpuscular Hgb Conc 34.1 g/dL (32.0-36.0); Mean Corpuscular Volume 84.1 fL (80.0-100.0); Mean Platelet Volume 9.4 fL (9.4-12.4); Platelet Count 292 K/uL (130-400); RDW Coefficient of Variation 12.3 % (11.5-14.5); RDW Standard Deviation 37.6 fL (36.4-46.3); Red Blood Count 4.91 M/uL (4.70-6.10); White Blood Count 13.46 K/ul (4.8-10.8)
[2023-09-19 07:13] LABS: Estimated Average Glucose 123 mg/dl; Hemoglobin A1C 5.9 % (4.5-5.6)
[2023-09-19 07:34] LABS: BUN Creatinine Ratio 16.5 (10-20); Calcium 8.8 mg/dl (8.6-10.3); Creatinine Clr Calc Pharmacy 143.3 ml/min; Est GFR (African American) 125.2 ml/min; Potassium 3.6 mmol/L (3.5-5.1)
[2023-09-19] MEDS: guaiFENesin 600 MG TABCR PO SCH (13:34)
--- NOTE | 2023-09-19 15:53 | Hospitalist Progress Note ---
Date of Service September 19, 2023 Assessment & Plan (1) Sepsis: (2) RLL pneumonia: Plan: Ran Myrick is a 37y/o M with no significant PMHx who presented to the ED for evaluation of cough w/ associated SOB and was found to have RLL pneumonia. Sepsis Right lower lobe pneumonia Acute respiratory failure with hypoxia--POA --CXR:Right lower lung airspace opacity likely represent atelectasis with or without superimposed aspiration/pneumonia. --Nasal MRSA negative -- BioFire positive for mycoplasma pneumonia --Group A strep, mono screen negative --Urine Legionella antigen pending --Blood cultures negative to date --Sputum culture moderate normal ct --Empirically on azithromycin, cefepime --Aggressive pulmonary hygiene -- Nebs as needed --Weaned off of supplemental oxygen --Received IV fluids -Antitussives as needed -Clinically improving Added Mucinex Nocturnal hypoxia Suspected ZELDA Will obtain nocturnal oximetry study Advised to get sleep study as outpatient Obesity BMI 4 Prediabetes A1c 5.9 DVT Px: Lovenox SQ Code Status: Full Code Admission and Anticipated Discharge Date Admission Date: September 17, 2023 Subjective Patient is seen and examined at bedside States having low oxygen saturations overnight Less cough, dyspnea today Patient states concern for possible ZELDA Denies any chest pain, nausea, vomiting abdominal pain Review of Systems Review of Systems: All systems reviewed & are unremarkable except as noted in Subjective Physical Exam Physical Exam: Physical Exam: Vitals signs as noted above General Appearance:Obese, no apparent distress Head: normocephalic, Atraumatic Eyes: normal inspection, EOMI Neck: supple, Trachea midline Respiratory/Chest: Decreased breath sounds, No accessory muscle use Cardiovascular: S1, S2, No murmur Abdomen/GI:Soft, Non tender, Bowel sounds present Extremities/Musculoskeletal:normal inspection, no edema Neurologic/Psych:AAOX3, grossly no focal neurological deficits Skin: normal color, warm Results & Data Results & Data Vital Signs (Past 12 Hours) Vital Signs Temp Pulse Pulse Resp BP Pulse Ox O2 Del Method 09/19/23 15:48 36.7 C 100 H 18 125/77 93 Room Air 09/19/23 15:04 92 H 09/19/23 14:42 87 18 94 Room Air 09/19/23 10:46 93 H 18 93 Room Air 09/19/23 08:00 Nasal Cannula 09/19/23 07:46 36.4 C L 73 18 124/72 92 Room Air 09/19/23 07:11 83 09/19/23 07:09 65 18 94 Nasal Cannula O2 Flow Rate 09/19/23 15:48 09/19/23 15:04 09/19/23 14:42 09/19/23 10:46 09/19/23 08:00 1 09/19/23 07:46 09/19/23 07:11 09/19/23 07:09 1 Laboratory Results Short CBC 09/19/23 Range/Units 06:13 WBC 13.46 H (4.8-10.8) K/ul Hgb 14.1 (14.0-18.0) g/dl Hct 41.3 L (42.0-52.0) % Plt Count 292 (130-400) K/uL BMP 09/19/23 06:13 Sodium 140 Potassium 3.6 Chloride 106 Carbon Dioxide 27 BUN 15 Creatinine 0.91 Glucose 124 H Calcium 8.8 (1) Sepsis Sepsis type: sepsis due to unspecified organism Sepsis acute organ dysfunction status: without acute organ dysfunction Qualified Code(s): A41.9 - Sepsis, unspecified organism (2) RLL pneumonia Pneumonia type: due to unspecified organism Qualified Code(s): J18.9 - Pneumonia, unspecified organism
[2023-09-20 07:01] LABS: Hematocrit (blood only) 44.3 % (42.0-52.0); Hemoglobin 14.7 g/dl (14.0-18.0); Mean Corpuscular Hemoglobin 28.4 pg (25.0-34.0); Mean Corpuscular Hgb Conc 33.2 g/dL (32.0-36.0); Mean Corpuscular Volume 85.5 fL (80.0-100.0); Platelet Count 334 K/uL (130-400); RDW Coefficient of Variation 12.4 % (11.5-14.5); RDW Standard Deviation 38.4 fL (36.4-46.3); Red Blood Count 5.18 M/uL (4.70-6.10)
[2023-09-20 07:15] LABS: BUN Creatinine Ratio 12.5 (10-20); Calcium 8.9 mg/dl (8.6-10.3); Creatinine Clr Calc Pharmacy 135.8 ml/min; Est GFR (African American) 117.4 ml/min; Est GFR (Non-African American) 101.3 ml/min; Potassium 4.2 mmol/L (3.5-5.1)
--- NOTE | 2023-09-20 12:59 | Hospitalist Progress Note ---
Date of Service September 20, 2023 Assessment & Plan (1) Sepsis: (2) RLL pneumonia: Plan: Ran Myrick is a 37y/o M with no significant PMHx who presented to the ED for evaluation of cough w/ associated SOB and was found to have RLL pneumonia. Sepsis Right lower lobe pneumonia Acute respiratory failure with hypoxia--POA --CXR:Right lower lung airspace opacity likely represent atelectasis with or without superimposed aspiration/pneumonia. --Nasal MRSA negative -- BioFire positive for mycoplasma pneumonia --Group A strep, mono screen negative --Urine Legionella antigen pending --Blood cultures negative to date --Sputum culture moderate normal ct --Empirically on azithromycin, cefepime --Aggressive pulmonary hygiene -- Nebs as needed --Weaned off of supplemental oxygen --Received IV fluids -Antitussives as needed Added Mucinex Plan to discharge home today Nocturnal hypoxia Suspected ZELDA Continue supplemental oxygen at bedtime Advised to get sleep study as outpatient Obesity BMI 4 Prediabetes A1c 5.9 DVT Px: Lovenox SQ Code Status: Full Code Disposition Home Admission and Anticipated Discharge Date Admission Date: September 17, 2023 Subjective Patient is seen and examined at bedside States feeling a lot better today Cough, dyspnea much improved Had nocturnal oximetry study overnight No new complaints Plan to be discharged home today Denies any chest pain, nausea, vomiting abdominal pain Review of Systems Review of Systems: All systems reviewed & are unremarkable except as noted in Subjective Physical Exam Physical Exam: Physical Exam: Vitals signs as noted above General Appearance:Obese, no apparent distress Head: normocephalic, Atraumatic Eyes: normal inspection, EOMI Neck: supple, Trachea midline Respiratory/Chest: Decreased breath sounds, No accessory muscle use Cardiovascular: S1, S2, No murmur Abdomen/GI:Soft, Non tender, Bowel sounds present Extremities/Musculoskeletal:normal inspection, no edema Neurologic/Psych:AAOX3, grossly no focal neurological deficits Skin: normal color, warm Results & Data Results & Data Vital Signs (Past 12 Hours) Vital Signs Temp Pulse Pulse Pulse Resp BP Pulse Ox 09/20/23 11:05 87 16 95 09/20/23 10:55 36.8 C 79 18 121/75 93 09/20/23 09:32 09/20/23 07:16 36.6 C 80 18 122/73 96 09/20/23 07:08 60 09/20/23 07:06 89 16 94 09/20/23 05:44 84 09/20/23 03:53 36.9 C 72 18 122/74 93 09/20/23 02:14 81 Pulse Ox O2 Del Method O2 Del Method 09/20/23 11:05 Room Air 09/20/23 10:55 Room Air 09/20/23 09:32 Room Air 09/20/23 07:16 Other 09/20/23 07:08 09/20/23 07:06 Room Air 09/20/23 05:44 93 Room Air 09/20/23 03:53 Room Air 09/20/23 02:14 92 Room Air Laboratory Results Short CBC 09/20/23 Range/Units 06:33 WBC 13.50 H (4.8-10.8) K/ul Hgb 14.7 (14.0-18.0) g/dl Hct 44.3 (42.0-52.0) % Plt Count 334 (130-400) K/uL BMP 09/20/23 06:33 Sodium 139 Potassium 4.2 Chloride 105 Carbon Dioxide 27 BUN 12 Creatinine 0.96 Glucose 112 H Calcium 8.9 (1) Sepsis Sepsis type: sepsis due to unspecified organism Sepsis acute organ dysfunction status: without acute organ dysfunction Qualified Code(s): A41.9 - Sepsis, unspecified organism (2) RLL pneumonia Pneumonia type: due to unspecified organism Qualified Code(s): J18.9 - Pneumonia, unspecified organism
--- NOTE | 2023-09-20 13:16 | Discharge Summary ---
Date of Service September 20, 2023 Admission HPI Per Admitting Provider Ran Myrick is a 37y/o M with no significant PMHx who presented to the ED for evaluation of cough w/ associated SOB x 5 days. History obtained from patient, and associated ED records. Patient seen at bedside and is accompanied in the room by his significant other, who provides additional history. Patient reports that he has been experiencing some ongoing SOB and cough since Wednesday. He reports yellow/green sputum pro duction and ongoing chills/body aches. His significant other notes that he has had ongoing, intermittent fevers. They could not remember what his last known temperature was, but it is understood that his temperature did reach ~102F a few days ago. His kids have been battling strep throat over the past week, but he denies any other recent sick contacts. He denies any N/V, abdominal pain or urinary/bowel habit changes. He has become increasingly fatigued, had some difficulty even getting out of bed this morning d/t weakness. He has been appropriately hydrating at home. He reports consuming a lot of cereal at home, which is not his normal diet. He endorses a slight decrease in appetite, but denies any issues with swallowing. He denies any chest pain. He did report becoming a little lightheaded/dizzy upon standing this morning when he got out of bed, but denies any recent falls. He is currently not lightheaded/dizzy. He has been taking Tylenol and OTC cold medications at home w/ no relief of the cough/SOB. He denies any current sinus congestion, but does endorse feeling congested in his chest. He is having some pleuritic pain d/t coughing so much, and has been dealing with episodes of sweating. He is currently not taking any prescription medications. He denies any sore throat. Initial BP on arrival to ED 154/88, now 123/70 on admission. HR was elevated at 112bpm around 1:57 PM, currently HR 84bpm. RR remaining elevated around the 30s, most recent RR 34. Temp NOT currently elevated at 37.2 C. Currently 92% O2 Sat on RA. Labs reveal WBC 16.04, no acute electrolyte abnormalities. Alk Phos slightly elevated at 112, otherwise LFTs w/in normal range. Group A strep and monoscreen both negative. Lactate 1.0 on admission. Creatinine 0.98 and GFR 98.8, no evidence of acute renal impairment. Chest x-ray revealed right lower lung airspace opacity likely representing atelectasis with or without superimposed aspiration/pneumonia. Will treat as likely pneumonia. Per [facility] SIRS/Sepsis/Septic Shock Criteria, patient does meet SEPSIS CRITERIA: current RR 34, WBC 16.04 and there is a suspected/present source of infection. Patient administered the following in the ED: 1L NSS, 600mg PO ibuprofen, 2g IV ceftriaxone, 500mg IV azithromycin, 325mg PO Tylenol and an albuterol nebulizer. Admission Exam Per Admitting Provider General Appearance: No acute distress, but appears slightly uncomfortable and sweaty. Conversing appropriately w/ no issues. Head: Normocephalic, atraumatic. Eyes: Normal inspection, PERRL, conjunctivae normal, anicteric sclerae. ENT: External ear and nose normal, oropharynx normal. Neck: Normal visual inspection, trachea midline, no thyromegaly. Respiratory: Lung sounds diminished throughout, no overt wheezing noted. No accessory muscle use. Cardiovascular: Tachycardic, regular rhythm, no murmur, normal peripheral pulses, no BLE edema. Vessels: No JVD. Chest: Normal inspection of chest. Abdomen/GI: Normal bowel sounds, soft, nontender, no hepatosplenomegaly. Extremities/Musculoskeletal: No cyanosis or clubbing, extremities motor strength 5/5. Neurologic: PERRL, EOMI, accommodation nl, no face palsy, no dysarthria, CN's II-XI grossly intact bilaterally and moves all extremities. Psychiatric: A+Ox3, euthymic affect. Skin: No rashes, normal color, warm/dry. Principal Diagnosis Sepsis Right lower lobe pneumonia Acute respiratory failure with hypoxia Nocturnal hypoxia Suspected ZELDA Discharge Data Allergies Allergy/AdvReac Type Severity Reaction Status Date / Time Pertussis Vaccines Allergy Intermediate Rash Verified 09/17/23 17:11 Consultations 09/17/23 14:19 ED Decision to Admit Stat Procedures Performed Laboratory Results WBC 13.50 K/ul (4.8-10.8) H 09/20/23 06:33 RBC 5.18 M/uL (4.70-6.10) 09/20/23 06:33 Hgb 14.7 g/dl (14.0-18.0) 09/20/23 06:33 Hct 44.3 % (42.0-52.0) 09/20/23 06:33 MCV 85.5 fL (80.0-100.0) 09/20/23 06:33 MCH 28.4 pg (25.0-34.0) 09/20/23 06:33 MCHC 33.2 g/dL (32.0-36.0) 09/20/23 06:33 RDW Std Deviation 38.4 fL (36.4-46.3) 09/20/23 06:33 RDW Coeff of Kike 12.4 % (11.5-14.5) 09/20/23 06:33 Plt Count 334 K/uL (130-400) 09/20/23 06:33 MPV 9.0 fL (9.4-12.4) L 09/20/23 06:33 Immature Gran % (Auto) 0.5 % 09/17/23 11:43 Neut % (Auto) 77.8 % 09/17/23 11:43 Lymph % (Auto) 13.4 % 09/17/23 11:43 Banner % (Auto) 7.0 % 09/17/23 11:43 Eos % (Auto) 1.0 % 09/17/23 11:43 Baso % (Auto) 0.3 % 09/17/23 11:43 Neut # (Auto) 12.47 K/uL (1.40-6.50) H 09/17/23 11:43 Lymph # (Auto) 2.15 K/uL (1.20-3.40) 09/17/23 11:43 Banner # (Auto) 1.13 K/uL (0.11-0.59) H 09/17/23 11:43 Eos # (Auto) 0.16 K/uL (0.00-0.50) 09/17/23 11:43 Baso # (Auto) 0.05 K/uL (0.00-0.20) 09/17/23 11:43 Immature Gran # (Auto) 0.08 K/uL (0.01-0.20) 09/17/23 11:43 ABG pH 7.46 (7.35-7.45) H 09/18/23 00:30 ABG pCO2 34 mmHg (35-46) L 09/18/23 00:30 ABG pO2 69 mmHg (80-95) L 09/18/23 00:30 ABG HCO3 24 mmol/L (19-24) 09/18/23 00:30 ABG O2 Saturation 96.0 % (90-95) H 09/18/23 00:30 ABG Base Excess 0.8 mEq/L (-9-1.8) 09/18/23 00:30 Guero Test Pos (Pos) 09/18/23 00:30 Oxygen Given 2L 09/18/23 00:30 Sodium 139 mmol/L (136-145) 09/20/23 06:33 Potassium 4.2 mmol/L (3.5-5.1) 09/20/23 06:33 Chloride 105 mmol/L (98-107) 09/20/23 06:33 Carbon Dioxide 27 mmol/L (21-32) 09/20/23 06:33 Anion Gap 7 (3-11) 09/20/23 06:33 BUN 12 mg/dl (6-23) 09/20/23 06:33 Creatinine 0.96 mg/dl (0.6-1.4) 09/20/23 06:33 Est Cr Clr Drug Dosing 135.8 ml/min 09/20/23 06:33 Est GFR ( Amer) 117.4 ml/min 09/20/23 06:33 Est GFR (Non-Af Amer) 101.3 ml/min 09/20/23 06:33 BUN/Creatinine Ratio 12.5 (10-20) 09/20/23 06:33 Glucose 112 mg/dl (70-99(Fasting)) H 09/20/23 06:33 Estimat Average Glucose 123 mg/dl 09/19/23 06:13 Hemoglobin A1c 5.9 % (4.5-5.6) H 09/19/23 06:13 Lactate 1.0 mmol/L (0.4-2.0) 09/17/23 13:14 Calcium 8.9 mg/dl (8.6-10.3) 09/20/23 06:33 Magnesium 2.1 mg/dl (1.7-2.4) 09/17/23 11:43 Total Bilirubin 0.7 mg/dl (0.2-1.0) 09/17/23 11:43 AST 25 U/L (13-39) 09/17/23 11:43 ALT 29 U/L (7-52) 09/17/23 11:43 Alkaline Phosphatase 112 U/L (34-104) H 09/17/23 11:43 Total Protein 7.8 gm/dl (6.0-8.3) 09/17/23 11:43 Albumin 4.4 gm/dl (3.4-5.0) 09/17/23 11:43 Globulin 3.4 gm/dl (2.5-4.0) 09/17/23 11:43 Albumin/Globulin Ratio 1.3 (0.9-2) 09/17/23 11:43 Procalcitonin 0.16 ng/ml (0-0.5) 09/19/23 06:13 Nasal Screen MRSA (PCR) Negative (Negative) 09/18/23 12:40 Acetaminophen < 3 ug/ml (10-30) L 09/17/23 11:43 Adenovirus (PCR) Not Detected (NotDetected) 09/17/23 15:39 B. pertussis DNA (PCR) Not Detected (NotDetected) 09/17/23 15:39 B.parapertussis DNA PCR Not Detected (NotDetected) 09/17/23 15:39 C. pneumoniae DNA (PCR) Not Detected (NotDetected) 09/17/23 15:39 Coronavirus OC43 (PCR) Not Detected (NotDetected) 09/17/23 15:39 Coronavirus HKU1 (PCR) Not Detected (NotDetected) 09/17/23 15:39 Coronavirus 229E (PCR) Not Detected (NotDetected) 09/17/23 15:39 SARS-CoV-2 (PCR) Not Detected (NotDetected) 09/17/23 15:39 Coronavirus NL63 (PCR) Not Detected (NotDetected) 09/17/23 15:39 Monoscreen Negative (Negative) 09/17/23 11:43 Human Metapneumovir PCR Not Detected (NotDetected) 09/17/23 15:39 Influenza Type A (PCR) Not Detected (NotDetected) 09/17/23 15:39 Influenza Type B (PCR) Not Detected (NotDetected) 09/17/23 15:39 Urine Legionella Ag SEE NOTE 09/18/23 06:10 M. pneumoniae (PCR) DETECTED (NotDetected) A 09/17/23 15:39 Parainfluenza 1 (PCR) Not Detected (NotDetected) 09/17/23 15:39 Parainfluenza 2 (PCR) Not Detected (NotDetected) 09/17/23 15:39 Parainfluenza 3 (PCR) Not Detected (NotDetected) 09/17/23 15:39 Parainfluenza 4 (PCR) Not Detected (NotDetected) 09/17/23 15:39 RSV (PCR) Not Detected (NotDetected) 09/17/23 15:39 Entero/Rhino (PCR) Not Detected (NotDetected) 09/17/23 15:39 Group A Strep (PCR) NOT DETECTED (NotDetected) 09/17/23 11:53 Impressions Chest X-Ray 09/18/23 00:06 XR chest 1V portable HISTORY: Shortness of breath. COMPARISON: Chest 09/17/2023. FINDINGS: Interval progression of the right lower lobe airspace opacity consistent with a pneumonia. No pneumothorax. No pleural effusions. The cardiac silhouette is borderline enlarged. This may be accentuated by the low lung volumes. There is mild diffuse interstitial prominence. IMPRESSION: Interval progression of the right lower lobe airspace opacity consistent with a pneumonia. 1-2 month chest x-ray follow-up recommended to ensure resolution. ACT 112: Negative or not required by law. Electronically signed by: Janusz Chance M.D. 09/18/2023 8:11 AM Hospital Course (1) Sepsis: (2) RLL pneumonia: Ran Myrick is a 37y/o M with no significant PMHx who presented to the ED for evaluation of cough w/ associated SOB and was found to have RLL pneumonia. Sepsis Right lower lobe pneumonia Acute respiratory failure with hypoxia--POA --CXR:Right lower lung airspace opacity likely represent atelectasis with or without superimposed aspiration/pneumonia. --Nasal MRSA negative -- BioFire positive for mycoplasma pneumonia --Group A strep, mono screen negative --Urine Legionella antigen pending --Blood cultures negative to date --Sputum culture moderate normal ct --Empirically on azithromycin, cefepime --Aggressive pulmonary hygiene -- Nebs as needed --Weaned off of supplemental oxygen --Received IV fluids -Antitussives as needed Added Mucinex Plan to discharge home today Nocturnal hypoxia Suspected ZELDA Continue supplemental oxygen at bedtime Advised to get sleep study as outpatient Obesity BMI 4 Prediabetes A1c 5.9 DVT Px: Lovenox SQ Code Status: Full Code Disposition Home Total Time Total Time Spent Total Time Spent (In Minutes): 49 minutes Discharge Plan Discharge Items Patient Disposition: Home - Self-Care Reason For Visit: RLL PNEUMONIA Discharge Diagnosis: Sepsis Right lower lobe pneumonia Acute respiratory failure with hypoxia Nocturnal hypoxia Suspected ZELDA Activity: Per Instructions section Exercise/Sports: Wait until after follow-up appointment Non-emergency contact: Primary Care Provider Call non-emergency contact if: you have any medication questions, your symptoms worsen, your pain is concerning for you and you have a fever Follow-up/Referrals: PCP,NO [Primary Care Provider] - Diet: Heart Healthy Addtl Attending Provider Instructions: Follow-up with your primary care physician in 1 week -- Complete the antibiotic course levofloxacin as prescribed --Continue supplemental oxygen 2 L at bedtime as advised. --Obtain sleep study as outpatient to rule out sleep apnea Seek immediate medical attention if your symptoms reoccur or worsen Please take all medications as instructed on discharge list below. Please call if you have any questions or problems. You can reach a [facility] hospitalist on duty at [facility] 24 hours a day by calling [phone] Pending Studies at Discharge: No Studies:: Blood Cultures Stand-Alone Forms: My [facility], Smoking Cessation Medications and DC Order Prescriptions: New guaifenesin [Mucinex] 600 mg Tablet Extended Release 12hr 600 mg PO Q12 Qty: 6 0RF levofloxacin 750 mg tablet 750 mg PO DAILY 5 Days Qty: 5 0RF Rx Instructions: Start taking from 09/21/2023 Discharge Orders: Discharge Order (Routine); Ordered 09/20/23 Ordered By: Xu Carbajal Admission Data Admit Date/Time: 09/17/23 14:33 Attending Provider: Xu Carbajal Admit Provider: Jacob Morgan Primary Care Provider: PCP,NO Other Providers: Jacob Morgan
[2023-09-20] MEDS: AZITHROMYCIN 250 MG TAB PO ONE (13:48)
--- NOTE | 2023-09-20 16:23 | Communication Note ---
Date of Service: September 20, 2023 Was notified by case management that supplemental oxygen would not be delivered until 09/21/2023. Discussed with patient in detail. Risks and consequences were explained in detail. Patient prefers to be discharged home and understands and agrees with current management. Will be discharged home today as per patient's request.
--- NOTE | 2023-09-21 05:58 | Electrocardiogram Report ---
Test Reason : Blood Pressure : / mmHG Vent. Rate : 078 BPM Atrial Rate : 078 BPM P-R Int : 138 ms QRS Dur : 100 ms QT Int : 382 ms P-R-T Axes : 042 060 038 degrees QTc Int : 435 ms Normal sinus rhythm Normal ECG No previous ECGs available Confirmed by Rayo Khan ([id number]) on 09/21/2023 5:58:34 AM Referred By: REFERRED SELF Confirmed By:Rayo Khan
[2023-09-21] MEDS ORDERED: AZITHROMYCIN 250 MG TAB PO SCH (09:00)
== END 2023-09-20 16:47 | disposition home or self-care (01) | DRG 871 ==
LOC: ED 11:15 → EDINP 14:33 → SUATTDRO 14:33 → 2N 18:46